=== PATIENT | female | born 1970 | race Caucasian/White ===

== ENCOUNTER 2017-12-27 15:33 | Outpatient (CLI) | payer BC | END 2017-12-27 15:34 | disposition home or self-care (01) | LOC: BICMAMMO 15:33 | PROVIDERS: ATTEND Family Medicine | DX: Z12.31 Encounter for screening mammogram for malignant neoplasm of breast (principal); Z80.3 Family history of malignant neoplasm of breast | CPT/HCPCS: 77063; 77067 ==

== ENCOUNTER 2019-09-13 09:47 | Day surgery (SDC) | payer BC ==
[2019-09-12 10:07] VITALS: BMI 33.0
[2019-09-13] MEDS ORDERED: Scopolamine 1.5 mg/72 hour Patch ONE (11:24)
[2019-09-13] MEDS ORDERED: Fentanyl 100 MCG/2 ML VIAL ONE (12:20)
[2019-09-13] MEDS ORDERED: Ondansetron PF 4 MG/2 ML Vial ONE (12:30)
[2019-09-13] MEDS ORDERED: Dexamethasone 20 MG/5 ML VIAL ONE (12:30)
[2019-09-13] MEDS ORDERED: PROPOFOL 200 MG/20 ML VIAL ONE (12:30)
[2019-09-13] MEDS ORDERED: Lidocaine 1% PF 5 ML VIAL ONE (12:30)
--- NOTE | 2019-09-13 13:42 | MRI ---
MRI OF BRAIN WITH AND WITHOUT IV CONTRAST: 09/13/19 HISTORY: 49-year-old female with memory deficits, memory loss. Mother from breast cancer and mets to anthony n. FINDINGS: No evidence of infarct, hemorrhage, mass, midline shift or abnormal extra-axial fluid collections see n. The ventricular size is normal and the basilar cisterns patent. No restricted diffusion is noted. No signal abnormality seen on highly sensitive FLAIR images. No blood products are noted on the gradi ent echo sequences. No abnormal postcontrast enhancement is seen. The visualized paranasal sinuses an d mastoid air cells are well aerated. IMPRESSION: Normal exam. POS: [facility]
[2019-09-13] MEDS ORDERED: Magnevist 469MG/ML 20 ML VIAL ONE (14:47)
== END 2019-09-13 14:29 | disposition home or self-care (01) ==
LOC: MRI 09:47 → SDC/OP 14:29
PROVIDERS: ATTEND Psychiatry & Neurology Neurology
DX: R41.3 Other amnesia (principal); Z79.82 Long term (current) use of aspirin; Z79.84 Long term (current) use of oral hypoglycemic drugs; Z79.899 Other long term (current) drug therapy; Z88.0 Allergy status to penicillin; Z88.2 Allergy status to sulfonamides
CPT/HCPCS: 70553; A9579; J1100; J2405; J2704; J3010

== ENCOUNTER 2020-06-08 10:58 | Day surgery (SDC) | payer BC ==
[2020-06-04 10:15] VITALS: BMI 31.4
[2020-06-08] MEDS ORDERED: Scopolamine 1.5 mg/72 hour Patch ONE (11:58)
[2020-06-08] MEDS ORDERED: Ondansetron PF 4 MG/2 ML Vial ONE (12:30)
[2020-06-08] MEDS ORDERED: PROPOFOL 200 MG/20 ML VIAL ONE (12:30)
[2020-06-08] MEDS ORDERED: Dexamethasone 20 MG/5 ML VIAL ONE (12:30)
[2020-06-08] MEDS ORDERED: PHENYLEPHRINE-NS 100 MCG/ML 10 ML SYRINGE ONE (12:30)
[2020-06-08] MEDS ORDERED: Lidocaine 1% PF 5 ML VIAL ONE (12:30)
[2020-06-08] MEDS ORDERED: Fentanyl 100 MCG/2 ML VIAL ONE (12:39)
== END 2020-06-08 14:45 | disposition home or self-care (01) ==
LOC: SDC/OP 10:58
PROVIDERS: ATTEND Family Medicine
DX: M50.122 Cervical disc disorder at C5-C6 level with radiculopathy (principal); M48.02 Spinal stenosis, cervical region; Z79.4 Long term (current) use of insulin; Z79.82 Long term (current) use of aspirin; Z79.899 Other long term (current) drug therapy; Z88.0 Allergy status to penicillin; Z88.2 Allergy status to sulfonamides; Z88.8 Allergy status to other drugs, medicaments and biological substances
CPT/HCPCS: 36416; 72141; 93005; 93010; J1100; J2405; J2704; J3010

== ENCOUNTER 2020-06-22 12:03 | Outpatient (CLI) | payer BC ==
[2020-06-22] MEDS ORDERED: Iopamidol 370 76% 100 ML VIAL ONE (13:05)
== END 2020-06-22 12:04 | disposition home or self-care (01) ==
LOC: CT 12:03 → EDSTATUS 12:30
PROVIDERS: ATTEND Family Medicine
DX: R22.2 Localized swelling, mass and lump, trunk (principal); R59.0 Localized enlarged lymph nodes; M46.02 Spinal enthesopathy, cervical region
CPT/HCPCS: 70491; Q9967

== ENCOUNTER 2021-01-06 13:35 | Outpatient (CLI) | payer BC | END 2021-01-06 13:36 | disposition home or self-care (01) | LOC: BICRAD 13:35 | PROVIDERS: ATTEND Neurological Surgery | DX: M54.2 Cervicalgia (principal); M47.812 Spondylosis without myelopathy or radiculopathy, cervical region | CPT/HCPCS: 72050 ==

== ENCOUNTER 2022-03-23 15:00 | Outpatient (CLI) | payer BC | END 2022-03-23 15:01 | disposition home or self-care (01) | LOC: DTY/OP 15:00 | PROVIDERS: ATTEND Surgery | DX: E11.9 Type 2 diabetes mellitus without complications (principal); E66.01 Morbid (severe) obesity due to excess calories | CPT/HCPCS: 97802 ==

== ENCOUNTER 2022-04-19 07:22 | Outpatient (CLI) | payer BC | END 2022-04-19 07:23 | disposition home or self-care (01) | LOC: RAD 07:22 | PROVIDERS: ATTEND Surgery | DX: K21.9 Gastro-esophageal reflux disease without esophagitis (principal); K44.9 Diaphragmatic hernia without obstruction or gangrene | CPT/HCPCS: 74220 ==

== ENCOUNTER 2022-04-28 16:28 | Outpatient (CLI) | payer BC ==
[2022-04-28 17:19] LABS: #Basophils 0.1 10x3/uL (0.0-0.2); #Eosinphils 0.1 10x3/uL (0.0-0.5); #Monocytes 0.5 10x3/uL (0.0-1.1); #Neutrophils 4.5 10x3/uL (1.5-8.4); %Basophils 0.8 % (0.0-2.0); %Eosinophils 1.2 % (0.0-6.0); %Lymphocytes 39.9 % (18.0-47.0); %Monocytes 5.3 % (0.0-10.0); %Neutrophils 52.4 % (40.0-75.0); Mean Corpuscular HGB CONC 33.8 g/dL (32.0-36.0); Mean Corpuscular Hemoglobin 31.7 pg (27.0-33.0); Mean Corpuscular Volume 93.7 fl (81.6-98.3); Platelet Count 385 10x3/uL (150-450); RBC Distribution Width 12.9 % (11.5-14.5); Red Blood Cell (RBC) Count 4.42 10x6/uL (3.90-5.03); White Blood Cell (WBC) Count 8.5 10x3/uL (3.5-10.5)
[2022-04-28 17:34] LABS: ALT (SGPT) 41 U/L (8-55); AST (SGOT) 23 U/L (5-34); Albumin 4.5 g/dL (3.5-5.0); Alkaline Phosphatase 110 U/L (40-110); Anion Gap 15 mmol/L (10-20); BUN (Urea Nitrogen) 23 mg/dL (7.0-18.7); Bilirubin, Total 0.4 mg/dL (0.2-1.2); Calc. Creatinine Clearance 0 mL/min (70-130); Calcium 10.2 mg/dL (7.8-10.44); Carbon Dioxide 28 mmol/L (22-29); Chloride 101 mmol/L (98-107); Estimated GFR 50; Globulin 3.1 g/dL (2.4-3.5); Glucose 181 mg/dL (70-105); Potassium 3.6 mmol/L (3.5-5.1); Protein, Total 7.6 g/dL (6.0-8.3); Sodium 140 mmol/L (136-145)
== END 2022-04-28 16:29 | disposition home or self-care (01) ==
LOC: LABBT 16:28
PROVIDERS: ATTEND Surgery
DX: Z01.818 Encounter for other preprocedural examination (principal); E66.01 Morbid (severe) obesity due to excess calories
CPT/HCPCS: 71046; 80053; 85025; 93005; 93010

== ENCOUNTER 2022-04-28 16:30 | Inpatient (IN) | payer BC ==
[2022-04-29 12:55] VITALS: BMI 35.1
[2022-05-03] MEDS ORDERED: Heparin 5,000 UNITS/ML VIAL ONE (07:34)
[2022-05-03 08:01] LABS: SARS-CoV-2 NAA Rapid Test Not Detected (NotDetected)
[2022-05-03] MEDS ORDERED: Bupivacaine/Epinephrine 0.25% 30 ML VIAL ONE (09:07)
[2022-05-03] MEDS ORDERED: fentaNYL PF 100 MCG/2 ML SYRINGE ONE (09:09)
[2022-05-03] MEDS ORDERED: Dexmedetomidine 200 MCG/2 ML VIAL ONE (09:09)
[2022-05-03] MEDS ORDERED: Levofloxacin 500 mg/D5W 100 ml Premix Bag ONE (09:29)
[2022-05-03] MEDS ORDERED: PHENYLEPHRINE-NS 100 MCG/ML 10 ML SYRINGE ONE (09:42)
[2022-05-03] MEDS ORDERED: Rocuronium Bromide 10 MG/ML (10ML VIAL) ONE (09:42)
[2022-05-03] MEDS ORDERED: NEOSTIGMINE 3 MG/3 ML SYR 3 MG/3 ML SYRINGE ONE (09:42)
[2022-05-03] MEDS ORDERED: Glycopyrrolate 0.2 MG/ML 5 ML SYRINGE ONE (09:42)
[2022-05-03] MEDS ORDERED: Lidocaine 1% PF 5 ML VIAL ONE (09:42)
[2022-05-03] MEDS ORDERED: ePHEDrine 50 MG/ML VIAL ONE (09:42)
[2022-05-03] MEDS ORDERED: Ondansetron PF 4 MG/2 ML Vial ONE (09:42)
[2022-05-03] MEDS ORDERED: Dexamethasone 20 MG/5 ML VIAL ONE (09:42)
[2022-05-03] MEDS ORDERED: PROPOFOL 200 MG/20 ML VIAL ONE (09:42)
[2022-05-03] MEDS ORDERED: Propofol 1,000 MG/100 ML VIAL IV ONE (09:50)
[2022-05-03] MEDS ORDERED: PROPOFOL 40 ML ONE (09:53)
[2022-05-03] MEDS ORDERED: SUGAMMADEX SODIUM 200 MG/2 ML VIAL ONE (10:18)
[2022-05-03] MEDS ORDERED: Promethazine HCl 25 MG/ML VIAL IM PRN ×3 (11:59→16:38)
[2022-05-03] MEDS ORDERED: Ondansetron HCl/PF 4 MG/2 ML Vial IVP PRN (11:59)
[2022-05-03] MEDS ORDERED: diphenhydrAMINE 50 MG/ML VIAL IM PRN (11:59)
[2022-05-03] MEDS ORDERED: Naloxone HCl 0.4 mg/ml Vial IV PRN (11:59)
[2022-05-03] MEDS ORDERED: FENTANYL 500 MCG/10 ML VIAL 2,000 MCG in Sodium Chloride 0.9% 60 ML IV PRN (11:59)
[2022-05-03] MEDS ORDERED: diphenhydrAMINE 25 MG CAP PO PRN (11:59)
[2022-05-03] MEDS ORDERED: Ondansetron PF 4 MG/2 ML Vial IVP PRN ×2 (11:59→16:38)
[2022-05-03] MEDS ORDERED: diphenhydrAMINE 50 MG/ML VIAL IVP PRN ×2 (11:59→16:38)
[2022-05-03] MEDS ORDERED: Communication Order-Pharmacy FS PRN (12:00)
[2022-05-03] MEDS ORDERED: HYDROmorphone 0.5 MG/0.5 ML SYRINGE ONE (12:12)
[2022-05-03] MEDS ORDERED: Promethazine HCl 25 MG/ML VIAL ONE (12:12)
[2022-05-03] MEDS ORDERED: HumaLOG 300 UNITS/3 ML VIAL SC PRN (16:38)
[2022-05-03] MEDS ORDERED: ALPRAZolam 0.5 MG TAB PO PRN (16:38)
[2022-05-03] MEDS ORDERED: hydrALAZINE 20 MG/ML VIAL SLOW IVP PRN (16:38)
[2022-05-03] MEDS ORDERED: Dextrose 5% in Water 1,000 ML IV PRN (16:38)
[2022-05-03] MEDS ORDERED: Ipratropium/Albuterol 3 ML NEB NEB PRN (16:38)
[2022-05-03] MEDS ORDERED: Hydrocodone-Acetamin 15 ML UDCUP PO PRN (16:38)
[2022-05-03] MEDS ORDERED: Dextrose 50% Abboject 50 ML SYRINGE SLOW IVP PRN (16:38)
[2022-05-03] MEDS: Sodium Chloride 0.9% 1,000 ML IV SCH (19:00)
[2022-05-04] MEDS: Sodium Chloride 0.9% 1,000 ML IV SCH ×2 (00:30→08:36)
[2022-05-04 05:57] LABS: #Monocytes 0.9 thou/uL (0.11-0.59); #Neutrophils 9.4 thou/uL (1.40-6.50); %Basophils 0.1 % (0.0-1.0); %Eosinophils 0.2 % (0.0-10.0); %Lymphocytes 16.2 % (21.0-51.0); %Monocytes 7.2 % (0.0-10.0); %Neutrophils 76.4 % (42.0-75.0); Hemoglobin 13.4 g/dL (12.0-16.0); Mean Corpuscular HGB CONC 33.2 g/dL (32.0-36.0); Mean Corpuscular Hemoglobin 32.5 pg (27.0-31.0); Mean Corpuscular Volume 97.7 fl (78.0-98.0); Mean Platelet Volume 8.5 fL (7.4-10.4); Platelet Count 298 10x3/uL (130-400); RBC Distribution Width 11.9 % (11.5-14.5); Red Blood Cell (RBC) Count 4.14 mill/uL (4.20-5.40); White Blood Cell (WBC) Count 12.3 10x3/uL (4.8-10.8)
[2022-05-04 06:15] LABS: Anion Gap 12 mmol/L (10-20); BUN (Urea Nitrogen) 20 mg/dL (7.0-18.7); Calc. Creatinine Clearance 97 mL/min (70-130); Calcium 8.9 mg/dL (7.8-10.44); Carbon Dioxide 26 mmol/L (22-29); Chloride 101 mmol/L (98-107); Estimated GFR 65; Glucose 158 mg/dL (70-105); Potassium 3.9 mmol/L (3.5-5.1); Sodium 135 mmol/L (136-145)
[2022-05-04] MEDS ORDERED: Non-Formulary Item 1 EACH (Amlodipine Besylate/Benazepril [Amlodipine Besylate/Benazepril PO SCH (09:00)
[2022-05-04] MEDS ORDERED: Lisinopril 20 MG TAB PO SCH (09:00)
[2022-05-04] MEDS ORDERED: Amlodipine 10 MG TAB PO SCH (09:00)
[2022-05-04] MEDS ORDERED: Pantoprazole 40 MG VIAL IVP SCH (09:00)
[2022-05-04] MEDS ORDERED: Hydrocodone-Acetamin 15 ML UDCUP PO PRN (10:00)
[2022-05-04 11:48] VITALS: BP 100/63; TEMP 100
== END 2022-05-04 15:14 | disposition home or self-care (01) | DRG 621 ==
LOC: SURG A 05-03 06:51
PROVIDERS: ADMIT Surgery; ATTEND Surgery
PROC: 0D164ZA Bypass Stomach to Jejunum, Percutaneous Endoscopic Approach (ICD-10-PCS; principal; 2022-05-03)
PROC: 8E0W4CZ Robotic Assisted Procedure of Trunk Region, Percutaneous Endoscopic Approach (ICD-10-PCS; 2022-05-03)
DX: E66.01 Morbid (severe) obesity due to excess calories (principal); E11.9 Type 2 diabetes mellitus without complications; I10 Essential (primary) hypertension; E78.5 Hyperlipidemia, unspecified; K21.9 Gastro-esophageal reflux disease without esophagitis; F41.9 Anxiety disorder, unspecified; G43.909 Migraine, unspecified, not intractable, without status migrainosus; G47.00 Insomnia, unspecified; Z20.822 Contact with and (suspected) exposure to COVID-19; Z88.0 Allergy status to penicillin; Z68.35 Body mass index [BMI] 35.0-35.9, adult; Z88.2 Allergy status to sulfonamides; Z88.8 Allergy status to other drugs, medicaments and biological substances; Z98.890 Other specified postprocedural states; Z90.49 Acquired absence of other specified parts of digestive tract; Z98.51 Tubal ligation status; Z90.710 Acquired absence of both cervix and uterus; Z79.899 Other long term (current) drug therapy; Z79.82 Long term (current) use of aspirin; Z79.4 Long term (current) use of insulin; Z83.3 Family history of diabetes mellitus; Z82.49 Family history of ischemic heart disease and other diseases of the circulatory system; G62.9 Polyneuropathy, unspecified; E78.00 Pure hypercholesterolemia, unspecified
CPT/HCPCS: 36415; 36416; 80048; 85025; 94760; C9113; J1100; J1170; J1644; J1650; J1956; J2405; J2550; J2704; J3490; J7050; U0002

== ENCOUNTER 2022-10-11 15:56 | Outpatient (CLI) | payer BC | END 2022-10-11 15:57 | disposition home or self-care (01) | LOC: RAD 15:56 | PROVIDERS: ATTEND Neurological Surgery | DX: M54.50 Low back pain, unspecified (principal); M47.816 Spondylosis without myelopathy or radiculopathy, lumbar region; M46.06 Spinal enthesopathy, lumbar region; M89.38 Hypertrophy of bone, other site | CPT/HCPCS: 72120 ==

== ENCOUNTER 2022-12-06 06:58 | Outpatient (CLI) | payer BC | END 2022-12-06 06:59 | disposition home or self-care (01) | LOC: BICULT 06:58 | PROVIDERS: ATTEND Family Medicine | DX: N13.30 Unspecified hydronephrosis (principal); E04.1 Nontoxic single thyroid nodule | CPT/HCPCS: 76536; 76770 ==

== ENCOUNTER 2023-01-10 15:51 | Outpatient (CLI) | payer BC ==
[2023-01-10 17:01] LABS: Hematocrit 42.3 % (34.9-44.5); Hemoglobin 14.5 g/dL (12.0-15.5); Mean Corpuscular HGB CONC 34.3 g/dL (32.0-36.0); Mean Corpuscular Hemoglobin 30.6 pg (27.0-33.0); Mean Corpuscular Volume 89.2 fl (81.6-98.3); Mean Platelet Volume 11.2 fl (7.4-10.4); Platelet Count 401 10x3/uL (150-450); RBC Distribution Width 12.2 % (11.5-14.5); Red Blood Cell (RBC) Count 4.74 10x6/uL (3.90-5.03); White Blood Cell (WBC) Count 8.1 10x3/uL (3.5-10.5)
[2023-01-10 17:06] LABS: PTT 26.8 sec (22.0-33.0); Prothrombin Time 11.2 sec (9.5-12.1)
[2023-01-10 17:08] LABS: Anion Gap 12 mmol/L (10-20); BUN (Urea Nitrogen) 13 mg/dL (9.8-20.1); Calc. Creatinine Clearance 0 mL/min (70-130); Calcium 9.7 mg/dL (7.8-10.44); Carbon Dioxide 30 mmol/L (22-29); Chloride 103 mmol/L (98-107); Estimated GFR 78; Glucose 160 mg/dL (70-105); Potassium 3.6 mmol/L (3.5-5.1); Sodium 141 mmol/L (136-145)
== END 2023-01-10 15:52 | disposition home or self-care (01) ==
LOC: LABBT 15:51
PROVIDERS: ATTEND Urology
DX: Z01.818 Encounter for other preprocedural examination (principal); N13.30 Unspecified hydronephrosis; E11.9 Type 2 diabetes mellitus without complications; Z87.442 Personal history of urinary calculi; Z98.890 Other specified postprocedural states
CPT/HCPCS: 36415; 80048; 81001; 82570; 83540; 83550; 84156; 85014; 85018; 85610; 85730; 87086; 93005; 93010

== ENCOUNTER 2023-01-11 09:51 | Day surgery (SDC) | payer BC ==
[2023-01-10 16:40] VITALS: BMI 21.4
[2023-01-11] MEDS ORDERED: LevoFLOXacin 500 mg/D5W 100 ML BAG ONE (10:41)
[2023-01-11] MEDS ORDERED: Iopamidol 15 ML ONE ×2 (11:53→13:21)
[2023-01-11] MEDS ORDERED: Midazolam HCl 2 mg/2 ml Vial ONE (12:03)
[2023-01-11] MEDS ORDERED: Fentanyl 250 MCG/5 ML VIAL ONE (12:03)
[2023-01-11] MEDS ORDERED: fentaNYL PF 100 MCG/2 ML SYRINGE ONE (12:10)
[2023-01-11] MEDS ORDERED: PROPOFOL 200 MG/20 ML VIAL ONE (12:15)
[2023-01-11] MEDS ORDERED: Ondansetron PF 4 MG/2 ML Vial ONE (12:15)
[2023-01-11] MEDS ORDERED: Lidocaine 1% PF 5 ML VIAL ONE (12:15)
[2023-01-11] MEDS ORDERED: Rocuronium Bromide 10 MG/ML (10ML VIAL) ONE (12:15)
[2023-01-11] MEDS ORDERED: Dexamethasone 20 MG/5 ML VIAL ONE (12:15)
[2023-01-11] MEDS ORDERED: SUGAMMADEX SODIUM 200 MG/2 ML VIAL ONE (13:07)
[2023-01-11] MEDS ORDERED: Oxybutynin 5 MG TAB ONE (13:40)
[2023-01-11] MEDS ORDERED: Phenazopyridine HCl 100 MG TAB ONE (13:40)
== END 2023-01-11 14:48 | disposition home or self-care (01) ==
LOC: SDC 09:51
PROVIDERS: ATTEND Urology
PROC: 0TC68ZZ Extirpation of Matter from Right Ureter, Via Natural or Artificial Opening Endoscopic (ICD-10-PCS; principal; 2023-01-11)
PROC: 0T768DZ Dilation of Right Ureter with Intraluminal Device, Via Natural or Artificial Opening Endoscopic (ICD-10-PCS; principal; 2023-01-11)
DX: N13.2 Hydronephrosis with renal and ureteral calculous obstruction (principal); I10 Essential (primary) hypertension; E11.9 Type 2 diabetes mellitus without complications; G47.00 Insomnia, unspecified; F41.9 Anxiety disorder, unspecified; G43.909 Migraine, unspecified, not intractable, without status migrainosus; K21.9 Gastro-esophageal reflux disease without esophagitis; E78.00 Pure hypercholesterolemia, unspecified; Z90.710 Acquired absence of both cervix and uterus; Z98.51 Tubal ligation status; Z90.49 Acquired absence of other specified parts of digestive tract; Z90.89 Acquired absence of other organs; Z98.890 Other specified postprocedural states; Z79.84 Long term (current) use of oral hypoglycemic drugs; Z79.899 Other long term (current) drug therapy; Z88.0 Allergy status to penicillin; Z88.2 Allergy status to sulfonamides; Z88.8 Allergy status to other drugs, medicaments and biological substances
CPT/HCPCS: 36416; 74018; 74420; 82365; 88300; C1747; C1769; C2617; J1100; J1956; J2250; J2405; J2704; J3010; Q9967

== ENCOUNTER 2023-02-14 16:06 | Outpatient (CLI) | payer BC ==
[2023-02-14 17:16] LABS: Hematocrit 44.5 % (34.9-44.5); Hemoglobin 15.3 g/dL (12.0-15.5); Mean Corpuscular HGB CONC 34.4 g/dL (32.0-36.0); Mean Corpuscular Hemoglobin 31.4 pg (27.0-33.0); Mean Corpuscular Volume 91.2 fl (81.6-98.3); Mean Platelet Volume 11.4 fl (7.4-10.4); Platelet Count 342 10x3/uL (150-450); RBC Distribution Width 12.3 % (11.5-14.5); Red Blood Cell (RBC) Count 4.88 10x6/uL (3.90-5.03); White Blood Cell (WBC) Count 7.9 10x3/uL (3.5-10.5)
[2023-02-14 17:44] LABS: Anion Gap 16 mmol/L (10-20); BUN (Urea Nitrogen) 19 mg/dL (9.8-20.1); Calc. Creatinine Clearance 0 mL/min (70-130); Calcium 9.8 mg/dL (7.8-10.44); Carbon Dioxide 23 mmol/L (22-29); Chloride 105 mmol/L (98-107); Estimated GFR 67; Glucose 160 mg/dL (70-105); Potassium 4.3 mmol/L (3.5-5.1); Sodium 140 mmol/L (136-145)
== END 2023-02-14 16:07 | disposition home or self-care (01) ==
LOC: LABBT 16:06
PROVIDERS: ATTEND Specialist
DX: Z01.818 Encounter for other preprocedural examination (principal); E07.89 Other specified disorders of thyroid; R22.1 Localized swelling, mass and lump, neck
CPT/HCPCS: 80048; 85027; 93005; 93010

== ENCOUNTER 2023-02-16 10:20 | Day surgery (SDC) | payer BC ==
[2023-02-14 16:33] VITALS: BMI 21.2
[2023-02-16] MEDS ORDERED: fentaNYL PF 100 MCG/2 ML SYRINGE ONE ×2 (12:48→16:01)
[2023-02-16] MEDS ORDERED: Midazolam HCl 2 mg/2 ml Vial ONE (12:49)
[2023-02-16] MEDS ORDERED: Ondansetron PF 4 MG/2 ML Vial ONE ×2 (12:49→13:25)
[2023-02-16] MEDS ORDERED: Dexamethasone 20 MG/5 ML VIAL ONE ×2 (12:49→13:25)
[2023-02-16] MEDS ORDERED: Lidocaine 1% PF 5 ML VIAL ONE ×2 (12:49→13:25)
[2023-02-16] MEDS ORDERED: PROPOFOL 20 ML ONE (12:49)
[2023-02-16] MEDS ORDERED: Lidocaine 2% 6 ML (Jelly) SYR ONE (12:51)
[2023-02-16] MEDS ORDERED: ePHEDrine Sulfate 50 MG/10 ML VIAL ONE ×2 (13:25→13:53)
[2023-02-16] MEDS ORDERED: PROPOFOL 200 MG/20 ML VIAL ONE (13:25)
[2023-02-16] MEDS ORDERED: fentaNYL 50 mcg/mL 1 mL Vial ONE ×3 (15:33→15:55)
[2023-02-16] MEDS ORDERED: HYDROcodone/Acetaminophen 5/325 mg Tablet ONE (16:45)
[2023-02-16] MEDS ORDERED: diphenhydrAMINE 25 MG CAP ONE (16:57)
== END 2023-02-16 17:16 | disposition home or self-care (01) ==
LOC: SDC 10:20
PROVIDERS: ATTEND Specialist
PROC: 0GTH4ZZ Resection of Right Thyroid Gland Lobe, Percutaneous Endoscopic Approach (ICD-10-PCS; principal; 2023-02-16)
DX: C73 Malignant neoplasm of thyroid gland (principal); E07.9 Disorder of thyroid, unspecified; E78.00 Pure hypercholesterolemia, unspecified; I10 Essential (primary) hypertension; N20.0 Calculus of kidney; F41.9 Anxiety disorder, unspecified; F32.A Depression, unspecified; E11.9 Type 2 diabetes mellitus without complications; Z79.84 Long term (current) use of oral hypoglycemic drugs; Z79.4 Long term (current) use of insulin; Z79.899 Other long term (current) drug therapy
CPT/HCPCS: 36416; 88307; 88331; C1889; J1100; J2250; J2405; J2704; J3010

== ENCOUNTER 2023-08-15 14:54 | Outpatient (CLI) | payer BC | END 2023-08-15 14:55 | disposition home or self-care (01) | LOC: ULT 14:54 | PROVIDERS: ATTEND Urology | DX: N20.0 Calculus of kidney (principal); N39.46 Mixed incontinence; N28.89 Other specified disorders of kidney and ureter; Z98.890 Other specified postprocedural states | CPT/HCPCS: 74018; 76770 ==

== ENCOUNTER 2023-12-11 16:02 | Emergency (ER) | payer BC ==
[~2023-12-11 16:02] MED LIST: Iopamidol-370 76% 500 ML MDV (1 ML CHARGE) ONE
[2023-12-11] MEDS ORDERED: diphenhydrAMINE 50 MG/ML VIAL ONE (17:27)
[2023-12-11] MEDS ORDERED: Metoclopramide HCl 10 MG (2 mL) VIAL ONE (17:27)
[2023-12-11] MEDS ORDERED: Meclizine HCl 25 MG TAB ONE (17:27)
[2023-12-11 18:09] LABS: #Basophils 0.04 10x3/uL (0.0-0.2); %Basophils 0.7 % (0.0-1.0); %Eosinophils 2.2 % (0.0-10.0); %Lymphocytes 10.4 % (21.0-51.0); %Monocytes 6.5 % (0.0-10.0); %Neutrophils 79.9 % (42.0-75.0); Hematocrit 42.9 % (36.0-47.0); Hemoglobin 14.7 g/dL (12.0-16.0); Mean Corpuscular HGB CONC 34.3 g/dL (32.0-36.0); Mean Corpuscular Hemoglobin 31.3 pg (27.0-31.0); Mean Corpuscular Volume 91.3 fL (78.0-98.0); Mean Platelet Volume 10.7 fL (7.4-10.4); Platelet Count 246 10x3/uL (130-400); RBC Distribution Width 12.7 % (11.5-14.5)
[2023-12-11 18:29] LABS: Troponin I Less than 0.010 ng/mL (< 0.028)
[2023-12-11 19:17] LABS: ALT (SGPT) 46 U/L (8-55); AST (SGOT) 38 U/L (5-34); Albumin 3.7 g/dL (3.5-5.0); Alkaline Phosphatase 102 U/L (40-110); Anion Gap 13 mmol/L (10-20); BUN (Urea Nitrogen) 19 mg/dL (9.8-20.1); Bilirubin, Total 0.5 mg/dL (0.2-1.2); Calc. Creatinine Clearance 0 mL/min (70-130); Carbon Dioxide 17 mmol/L (22-29); Chloride 104 mmol/L (98-107); Estimated GFR 71; Globulin 3.8 g/dL (2.4-3.5); Glucose 98 mg/dL (70-105); Potassium 3.7 mmol/L (3.5-5.1); Protein, Total 7.5 g/dL (6.0-8.3); Sodium 130 mmol/L (136-145)
[2023-12-11 19:21] LABS: Lipase 8 U/L (8-78); Magnesium 1.8 mg/dL (1.6-2.6)
[2023-12-11 20:47] LABS: Bacteria/HPF None Seen HPF (None Seen); Bilirubin Negative (Negative); Blood, Urine Negative (Negative); CAUTI Indications for Culture Fever or rigors; Clarity Clear (Clear); Glucose, Urine (Dipstick) 500 mg/dL (Negative); Ketone, Urine Negative (Negative); Leukocyte Negative Leu/uL (Negative); Nitrite Negative (Negative); Protein, Urine (Dipstick) Negative (Neg-Trace); RBC/HPF 0-3 HPF (0-3); Specific Gravity, Urine 1.021 (1.002-1.036); Squamous Epithelial 0-3 HPF (0-3); Urobilinogen Normal mg/dL (Less than 2); WBC/HPF 0-3 HPF (0-3)
[2023-12-11 20:56] LABS: Urine Culture Reflex No No
[2023-12-11 21:36] LABS: Influenza A by NAA Not Detected (NotDetected); Influenza B by NAA Not Detected (NotDetected); SARS-CoV-2 NAA Rapid Test Not Detected (NotDetected)
== END 2023-12-11 21:14 | disposition home or self-care (01) ==
LOC: ERS 16:02
DX: B34.9 Viral infection, unspecified (principal); E11.9 Type 2 diabetes mellitus without complications
CPT/HCPCS: 36415; 70450; 71046; 71275; 80053; 81001; 83690; 83735; 83880; 84484; 85025; 93005; 96374; 96375; J1200; J2765; Q9967

== ENCOUNTER 2024-03-11 15:49 | Outpatient (CLI) | payer BC | END 2024-03-11 15:50 | disposition home or self-care (01) | LOC: BICULT 15:49 | PROVIDERS: ATTEND Otolaryngology Plastic Surgery within the Head & Neck | DX: E07.89 Other specified disorders of thyroid (principal); E89.0 Postprocedural hypothyroidism | CPT/HCPCS: 76536 ==

== ENCOUNTER 2024-03-14 15:50 | Outpatient (CLI) | payer BC | END 2024-03-14 15:51 | disposition home or self-care (01) | LOC: CT 15:50 | PROVIDERS: ATTEND Urology | DX: N20.0 Calculus of kidney (principal) | CPT/HCPCS: 74176 ==